=== PATIENT | male | born 1990 | race African-American/Black ===

== ENCOUNTER 2020-12-04 08:21 | Emergency (ER) | payer BC, SELFPAY ==
[2020-12-04] MEDS ORDERED: Metoclopramide HCl 10 MG/2 ML VIAL ONE (08:45)
[2020-12-04] MEDS ORDERED: diphenhydrAMINE 50 MG/ML VIAL ONE (08:45)
[2020-12-04] MEDS ORDERED: Ketorolac Tromethamine 30 MG/ML VIAL ONE (08:45)
== END 2020-12-04 10:25 | disposition home or self-care (01) ==
LOC: CSHERS 08:21
DX: R51.9 Headache, unspecified (principal); F17.210 Nicotine dependence, cigarettes, uncomplicated
CPT/HCPCS: 70450; 96365; 96375; J1200; J1885; J2765